=== PATIENT | male | born 1960 | race African-American/Black ===

== ENCOUNTER → 2021-08-28 13:28 | Outpatient (BNVA) | payer OTHER, SELFPAY | PROVIDERS: PCP Nurse Practitioner; Visit Provider Nurse Practitioner Family | DX: N40.1 Benign prostatic hyperplasia with lower urinary tract symptoms (principal); Z12.5 Encounter for screening for malignant neoplasm of prostate | CPT/HCPCS: 81003; G0103 ==

== ENCOUNTER → 2022-04-30 11:07 | Outpatient (BNVA) | payer OTHER, SELFPAY | PROVIDERS: PCP Nurse Practitioner; Visit Provider Nurse Practitioner Family | DX: N40.1 Benign prostatic hyperplasia with lower urinary tract symptoms (principal) | CPT/HCPCS: 51741; 51798; 99213 ==

== ENCOUNTER → 2022-05-05 09:23 | Outpatient (BNVA) | payer OTHER, SELFPAY | PROVIDERS: PCP Nurse Practitioner; Visit Provider Nurse Practitioner Family | DX: N40.1 Benign prostatic hyperplasia with lower urinary tract symptoms (principal) | CPT/HCPCS: 81003 ==

== ENCOUNTER → 2022-05-23 11:10 | Outpatient (BNVA) | payer OTHER, SELFPAY | PROVIDERS: PCP Nurse Practitioner; Visit Provider Urology | DX: N40.1 Benign prostatic hyperplasia with lower urinary tract symptoms (principal) | CPT/HCPCS: 51798; 52000; 81003; 99214 ==

== ENCOUNTER 2022-06-04 09:45 | Observation (INO) | payer OTHER, SELFPAY ==
[2022-06-03 09:49] VITALS: BMI 29.8
--- NOTE | 2022-06-03 10:19 | ANES.PREANE2 ---
Pre-Anesthetic Assessment Height/Weight: Height 1.83 m Weight 99.79 kg Operation Date: 06/04/22 07:00 Proposed Procedures p 48767 Transurethral Rection of Prostate N40.1(Not Applicable) - Rom Cerna MD s Cystoscopy(Not Applicable) - Rom Cerna MD Familial anesthetic complications: none Was Beta Razia taken within 24 hours: N/A Was Clonidine taken within 24 hours: N/A Social No alcohol and No tobacco Exam alert, oriented x 3, clear to auscultation bilaterally and regular rate & rhythm Airway Submandibular: within normal limits Cervical ROM: within normal limits Mallampati: Class II Dentition: full CV/HEM Hypertension Metabolic Hyperlipidemia Anesthetic Plan ASA status: 2 Anesthesia: General Medications/Allergies Home Medications Medication Instructions Recorded Confirmed Last Taken Type atorvastatin 80 mg tablet 80 mg PO DAILY 08/28/21 06/03/22 Unknown History doxepin 50 mg capsule 50 mg PO DAILY 08/28/21 06/03/22 Unknown History finasteride 5 mg tablet 5 mg PO DAILY 08/28/21 06/03/22 Unknown History fluoxetine 20 mg capsule 20 mg PO DAILY 08/28/21 06/03/22 Unknown History losartan 100 mg tablet 100 mg PO DAILY 08/28/21 06/03/22 Unknown History multivitamin 1 tab PO DAILY 08/28/21 06/03/22 Unknown History sildenafil 100 mg tablet 100 mg PO DAILY PRN Erectile 08/28/21 06/03/22 Unknown History Dysfunction tamsulosin 0.4 mg capsule 0.4 mg PO BID #180 caps 08/28/21 06/03/22 Unknown Rx amlodipine 5 mg tablet 5 mg PO DAILY 04/30/22 06/03/22 Unknown History niacin 1,000 mg tablet,extended 1,000 mg PO DAILY 04/30/22 06/03/22 Unknown History release 24 hr Allergies Allergy/AdvReac Type Severity Reaction Status Date / Time Penicillins Allergy Unknown Verified 06/03/22 09:43 [facility] Anesthesia Medical History BPH loc w urin obs/LUTS Surgical History History of cervical spinal surgery History of hernia surgery History of rotator cuff surgery Family History Father , AT AGE 74 Cancer COLON Mother , AT AGE 58 Stroke Social History Smoking and tobacco status: never smoked Alcohol intake: never Marital status: Current occupational status: retired and disabled History of recent travel: No Data Anesthesia Cardiac Studies: No Data to Display
[2022-06-03 11:05] LABS: Anion Gap 12.1 (5-19); Blood Urea Nitrogen 16 mg/dL (8-23); Carbon Dioxide 28 mmol/L (22-29); Chloride 100 mmol/L (98-107); Glomerular Filtration Rate 46.8 mL/min (90-130); Glucose 94 mg/dL (65-115); Osmolality Calculated 283 mOsm/kg (285-295); Potassium 4.1 mmol/L (3.5-5.1); Sodium 136 mmol/L (136-145)
[2022-06-04] VITALS (24 sets, daily range): BP systolic 146–187; BP diastolic 73–111; PULSE 57–93; RESP 16–20; TEMP 35.6–36.6; O2SAT 94–100; BMI 30.7
--- NOTE | 2022-06-04 06:43 | ECG_ITS ---
[facility] Test Date: 2022-06-04 Pat Name: Varun Quinn Department: Room: Gender: Male Building Specialist: : 1960 Requested By: Rom Cerna Order Number: [id number] Ainsley MD: Josue Ramos M.D. Measurements Intervals [place] Rate: 64 P: 51 NV: 158 QRS: -17 QRSD: 88 T: 30 QT: 384 QTc: 399 Interpretive Statements SINUS RHYTHM MINIMAL VOLTAGE CRITERIA FOR LVH, CONSIDER NORMAL VARIANT [MEETS CRITERIA IN ONE OF: R(aVL), S(V1), R(V5), R(V5/V6)+S(V1)] No previous ECG available for comparison Electronically Signed On 06-05-2022 7:12:18 CDT by Josue Ramos M.D. [id number]
[2022-06-04] MEDS: midazolam 1 mg/mL INJ 2 mL 2 MG IVP (06:54)
--- NOTE | 2022-06-04 06:55 | W.PM.OPSUD ---
Surgery/Procedure H&P Update DATE OF PROCEDURE: June 04, 2022 DATE H&P PERFORMED: 05/23/22 H&P UPDATE INFORMATION: I have reviewed H&P completed within last 30 days, I have examined patient prior to procedure, No changes to prior documentation and H&P is in [facility] EMR on date indicated PREOP DIAGNOSIS: Refractory BPH/obstruction PLANNED PROCEDURE: Operation Date: 06/04/22 07:00 Proposed Procedures p [id number] Transurethral Rection of Prostate N40.1(Not Applicable) - Rom Cerna MD s Cystoscopy(Not Applicable) - Rom Cerna MD
[2022-06-04] MEDS: levofloxacin-dextrose 5 % 500 MG/100 ML PREMIX 100 MG IV (08:05)
[2022-06-04 08:06] LABS: Basophils % 0.3 %; Eosinophils % 0.3 %; Hematocrit 41.8 % (42.0-52.0); Hemoglobin 13.4 g/dL (11.7-16.6); Lymphocytes # 2.4 10^3/uL (0.8-4.8); Lymphocytes % 41.1 %; Mean Corpuscular HGB Conc 32.1 g/dL (30.0-36.0); Mean Corpuscular Volume 93.5 fl (80-94); Mean Platelet Volume 9.5 fL (7.4-10.4); Monocytes # 0.5 10^3/uL (0.2-0.9); Neutrophils # 2.84 10^3/uL (1.8-7.7); Nucleated Red Blood Cells % 0 %; Platelet Count 243 10^3/cmm (130-400); Red Blood Count 4.47 10^6/uL (4.1-5.3); Red Cell Distribution Width 11.8 % (12.1-15.1); White Blood Count 5.8 10^3/uL (4.0-10.0)
[2022-06-04] MEDS: lidocaine 2% Urojet 20 mL TOPICAL (08:30)
--- NOTE | 2022-06-04 09:56 | P.OP_ITS ---
Operative Report Date of procedure: June 04, 2022 Pre-op diagnosis: Refractory BPH/obstruction Post-op diagnosis: Refractory BPH/obstruction Procedure done: 1. Cystoscopy, transurethral section/vaporization of prostate Specimens removed/disposition: Prostate chips Pathology: Prostate chips Surgeon: Eryn Estimated blood loss: Less than 25 cc Urine output: Not measured Complications: None Findings: Anesthesia: General Condition: Stable Disposition: PACU Intraoperative findings: * Trilobar enlargement of the prostate with the bulk of the tissue being on the floor and median lobe. * Wide open at the completion of the procedure with meticulous hemostasis * 22 Singaporean three-way Villagran placed with 20 cc in the balloon Brief History: Mr. Quinn is a very pleasant 62-year-old white male with longstanding progressive history of BPH/obstruction with progressive symptoms on medical therapy including FINASTERIDE and maximum dose TAMSULOSIN. He had planned for a TUR many years ago but ultimately decided to postpone and recently based on his progressive symptoms on full therapy elected to proceed. Alternatives chris adame reviewed preoperatively. Procedure: After routine preoperative evaluation examination and obtaining of informed consent he was taken to the operating suite on 06/04/2022 where general anesthesia was administered without difficulty after appropriate timeout was performed, SCDs confirmed to be functioning,Preoperative antibiotics administered, beta-yanet protocol confirmed. Prepped and draped in usual sterile fashion in dorsolithotomy position paying careful attention to avoiding pressure points. 21 Singaporean cystoscope with 30 degree lens was introduced into the urethra meatus and advanced into the bladder without difficulty. Orifices were confirmed to be well away from the bladder neck. The verumontanum was easily identifiable. Most of the tissue appeared to be on the posterior floor but he did have some lateral lobe hypertrophy as well. The urethra was then calibrated with well-lubricated [place] sounds and easily accommodated 32 Singaporean. 2% lidocaine jelly was instilled into the urethra and a well-lubricated 25 Singaporean continuous-flow resectoscope sheath with visual obturator in place was advanced into the bladder without difficulty. The gyrus bipolar system was utilized with the super loop for the resection and the button probe for the vaporization component. Super loop was used initially. Resection was begun circumferentially at the bladder neck paying careful attention to identification of the ureteral orifices and staying well away from them. This was accomplished easily. The floor the prostate was then resected to open up the bladder neck extending the resection out to but not distal to the verumontanum. The left lateral lobe from the bladder neck out to the same distal extent was then resected and then the right lateral lobe in the same longitudinal extent and depth. Button probe was utilized to vaporize the remaining lateral lobe hypertrophy tissue. The super loop was then used again on the floor to harvest the remaining tissue. Hemostasis was meticulous. All chips were evacuated from the bladder and confirmed to be so at the final inspection. The prostatic fossa was wide open. Orifices were not involved in the resection and tissue distal to the verumontanum was undisturbed as well. A 22 Singaporean three-way Villagran catheter with 20 cc placed in the balloon was easily advanced without difficulty. Catheter function was confirmed. Light CBI was initiated. He tolerated procedure well without complications and was awakened in the operating room and returned to the recovery room in stable condition. PLANS: 1. Admit to observation status 2. Anticipate catheter removal and likely discharge
[2022-06-04] MEDS: fentaNYL 50 mcg/mL INJ 2mL IVP (10:10)
[2022-06-04] MEDS: meperidine 50 mg/mL INJ 12.5 MG IVP (10:19)
[2022-06-04] MEDS: HYDROmorphone 1 mg/mL INJ 1 mL 0.5 MG IVP (10:22)
--- NOTE | 2022-06-04 10:45 | SUR.PHASEI ---
1005 SCDs placed on a pump and pump is working
[2022-06-04] MEDS: amlodipine 5 mg Tablet PO ×2 (11:32→13:52)
[2022-06-04] MEDS: finasteride 5 mg Tablet PO (11:33)
[2022-06-04] MEDS: HYDROcodone-acetaminophen 5-325 mg Tablet 1 TAB PO ×2 (11:33→18:35)
[2022-06-04] MEDS: fluoxetine 20 mg Capsule PO (11:33)
[2022-06-04] MEDS: morphine 4 mg/mL SDV 1 mL 2 MG IVP ×4 (12:24→20:38)
[2022-06-04] MEDS: dextrose 5%-ns + KCl 20 20 MEQ/1,000 ML BAG 50 MEQ IV (12:27)
[2022-06-04] MEDS: ondansetron 2 mg/ML SDV 2 mL 4 MG IVP (12:33)
--- NOTE | 2022-06-04 12:38 | PC.NURSE ---
nurse was notified about high BP
[2022-06-04] MEDS: tamsulosin 0.4 mg Capsule PO (17:29)
[2022-06-04] MEDS: docusate sodium 100 mg Capsule PO (17:29)
--- NOTE | 2022-06-04 17:41 | ANE.PACU2 ---
Inpatient post-anesthesia follow up: Airway intact: Yes Vital signs: Temperature 97.7 F Pulse Rate 65 Respiratory Rate 16 Blood Pressure 159/81 Pulse Oximetry 96 Oxygen Delivery Me thod Room Air Oxygen Flow Rate 3 Fraction of Inspir ed Oxygen Hydration adequate: Yes Nausea and vomiting: No Pain level: 3 Mental status: Baseline
[2022-06-05] VITALS (13 sets, daily range): BP systolic 137–162; BP diastolic 77–87; PULSE 63–89; RESP 16–20; TEMP 35.8–36.8; O2SAT 93–96
[2022-06-05] MEDS: morphine 4 mg/mL SDV 1 mL 2 MG IVP ×4 (00:08→16:37)
--- NOTE | 2022-06-05 04:44 | NUR.SHIFT ---
CBI shift report: When coming on to shift the patient's CBI was wide open. Output was a bright red color. This continued for approximately 4 hours. At approximately 2300 the rate was slowed to a fast trickle. Maintained this with light pink to clear output. At this time it is clear and patient denies any discomfort to his bladder and no distention noted and the rate has been decreased to a slow trickle.
[2022-06-05] MEDS: HYDROcodone-acetaminophen 5-325 mg Tablet 1 TAB PO ×3 (05:09→22:33)
[2022-06-05] MEDS: doxepin 50 mg Capsule PO (09:20)
[2022-06-05] MEDS: docusate sodium 100 mg Capsule PO ×2 (09:21→17:35)
[2022-06-05] MEDS: fluoxetine 20 mg Capsule PO (09:21)
[2022-06-05] MEDS: tamsulosin 0.4 mg Capsule PO ×2 (09:21→17:35)
[2022-06-05] MEDS: amlodipine 5 mg Tablet PO (09:21)
[2022-06-05] MEDS: losartan 50 mg Tablet 100 MG PO (09:21)
[2022-06-05] MEDS: atorvastatin 40 mg Tablet 80 MG PO (09:21)
[2022-06-05] MEDS: finasteride 5 mg Tablet PO (09:21)
--- NOTE | 2022-06-05 10:29 | PC.CHAP ---
Pastoral Care Encounter/Spiritual Assessment Type of Contact [] Declined woodworker visit [] Patient/Family/Request visit [] Outpatient visit [] Follow-up visit [] Physician referral [] Code/Alert [x] Routine visit [] Staff referral [] Actively dying [] Patient sleeping [] Family support [] [] Out of room [] Palliative care [] [x] Receiving care in room [] Pre-surgical visit [] Trauma [] Long length of stay [] ICU visit [] Other: Relational/Emotional Strength [x] Patient feels connected with others/family/visitors/staff [] Distress [] Loneliness/isolation [] Abandonment Spirituality of Patient [x] Person of Grace [] Attends Buddhist of their Grace [x] Believes in Prayer [] Reads Bible or Zoroastrian materials [] There are Spiritual issues to be addressed Statistical Programmer Interventions [x] Prayer [x] Active listening [x] Non-anxious presence [x] Spiritual/emotional support [] Crisis/trauma care [x] Spiritual counseling [] Bereavement support [] Provided bereavement packet [] Provided Bible/devotional materials [] Provided toy/stuffed animal, coloring book to patient or family member [] Provided Communion [] Anointing/[place] [] Salvation [x] Completed spiritual assessment [] Other: Impact on Illness or Injury [] Angry [] Fearful [] Anxious [] Often cries [] Exhaustion [] Unable to work [] Unable to attend tenriism [] Unable to walk/stand [] Unable to read [] Unable to drive [] Unable to eat/drink [] Unable to sleep [] Unable to be with family [] Patient intubated [] Other: Summary dealing with prostate clearing up has a good attitude well go home soon +1 Time spent with patient 10 mins
--- NOTE | 2022-06-05 18:30 | P.PN_ITS ---
Subjective Subjective: Postop day #1: TURP Urine remained red when CBI decreased throughout the day. Recommended maintaining hospitalization for CBI throughout the day on 06/05/2020 2 in the evening check showed that it was still being required. Recommend second night in the hospital for observation and chance to wean CBI No other complaints. Medications: Reviewed: Yes Vitals/I&O/Wt Last Vital Signs Temp 97.7 F 06/06/22 07:12 Pulse 69 06/06/22 07:12 Resp 16 06/06/22 07:12 BP 145/82 06/06/22 07:12 Pulse Ox 96 06/06/22 07:12 O2 Del Method 06/06/22 07:12 O2 Flow Rate 3 06/04/22 10:49 06/05/22 06/06/22 06/06/22 22:59 06:59 14:59 Intake Total 2280 / 2880 480 / 3360 Output Total 1200 / 1375 Balance 1080 / 1505 480 / 1985 Weight last 48 hrs Weight 226 lb 14.4 oz Physical Exam Narrative: Alert oriented no acute distress very pleasant cooperative throughout exam unlabored respiration, no wheezing Abdomen soft nontender Villagran catheter functioning. CBI running at low rate with urine pink Good range of motion of extremities. No neurologic signs. Urinary Catheter Management: 3-way Urethral CBI Latex: Cath Placed During This Visit: yes Reason for Continuing Indwelling Catheter: Required Immobilization for Trauma or Surgery or Anesthesia Urinary Catheter Date of Insertion: 06/04/22 Urinary Catheter Time of Insertion: 09:50 Data : 06/04/22 Unknown 06/03/22 10:20 A&P Assessment and plan (1) BPH loc w urin obs/LUTS: Status post TURP with not enough clearing of his urine yet to be able to completely stop the CBI although the flow rate has been low. See HPI Attestations Medical Necessity Statement*: Maintain hospitalization for continued CBI. Anticipate being able to remove the catheter on postop day #2. Coding Level of Care Code Acute Senior Hris Analyst for Kamar Fwashleigh Diagnoses BPH loc w urin obs/LUTS N40.1
[2022-06-06 04:49] VITALS: BP 150/85; PULSE 79; RESP 20; TEMP 36.6; O2SAT 95
[2022-06-06 07:12] VITALS: BP 145/82; PULSE 69; RESP 16; TEMP 36.5; O2SAT 96
[2022-06-06] MEDS: HYDROcodone-acetaminophen 5-325 mg Tablet 1 TAB PO (07:18)
[2022-06-06] MEDS: fluoxetine 20 mg Capsule PO (08:23)
[2022-06-06] MEDS: atorvastatin 40 mg Tablet 80 MG PO (08:23)
[2022-06-06] MEDS: finasteride 5 mg Tablet PO (08:23)
[2022-06-06] MEDS: doxepin 50 mg Capsule PO (08:23)
[2022-06-06] MEDS: docusate sodium 100 mg Capsule PO (08:23)
[2022-06-06] MEDS: amlodipine 5 mg Tablet PO (08:24)
[2022-06-06] MEDS: tamsulosin 0.4 mg Capsule PO (08:24)
[2022-06-06] MEDS: losartan 50 mg Tablet 100 MG PO (08:24)
[2022-06-06 11:51] VITALS: BP 126/73; PULSE 66; RESP 18; TEMP 36.4; O2SAT 96
--- NOTE | 2022-06-06 13:38 | PM.DCS ---
Discharge Providers Date of Admission: 06/04/22 09:45 Date of Discharge: June 06, 2022 Attending Provider at Admission: Rom Cerna MD Attending Provider at Discharge: Rom Cerna MD Consults: None Primary Care Provider: SHERON MARINO Diagnoses at Discharge Discharge Diagnosis (1) BPH loc w urin obs/LUTS: Status: Acute Reason for Visit Reason for Visit: BPH/Obstruction Brief History: Longstanding progressive bladder outlet obstructive symptoms secondary to BPH/obstruction. Had been on maximal medical therapy for quite some period of time with improvement but over time symptoms progressed. Ultimately elected to proceed with intervention. All options were thoroughly reviewed including minimally invasive versus TUR. After careful review of options he elected to proceed with TURP. Hospital Course Hospital Course He was admitted on the day of the procedure which went well. He was wide open at the completion of the procedure and hemostatic in the operating room. Postoperatively he did well. He did require CBI for an extra 24 hours but ultimately was weaned off and his catheter was removed on postop day #2. He voided spontaneously with clearing urine. Still had some pink-tinged urine but it was not significant and there were no significant clots. He was deemed to be a good candidate for further convalescence at home and was discharged on postop day #2 in stable condition. Physical Exam Narrative: Alert oriented no acute distress Pleasant cooperative throughout exam No labored respiration. Abdomen soft. Urine is pink with no clots. Urinary Catheter Management: 3-way Urethral CBI Latex: Cath Placed During This Visit: yes, but has since been removed by the nurse Reason for Continuing Indwelling Catheter: Decision to DC Catheter Urinary Catheter Date of Insertion: 06/04/22 Urinary Catheter Time of Insertion: 09:50 Date Urinary Catheter Removed: 06/06/22 Time Urinary Catheter Discontinued: 07:45 Discharge Data Studies Completed and Pending Completed Studies During Hospitalization Category Date Time Status Pathology: Surgical [PTH] Routine Pth 06/04/22 08:40 Completed Laboratory Results WBC 5.8 10^3/uL (4.0-10.0) 06/04/22 Unknown RBC 4.47 10^6/uL (4.1-5.3) 06/04/22 Unknown Hgb 13.4 g/dL (11.7-16.6) 06/04/22 Unknown Hct 41.8 % (42.0-52.0) L 10/26/22 Unknown MCV 93.5 fl (80-94) 06/04/22 Unknown MCH 30.0 pg (28.0-34.0) 06/04/22 Unknown MCHC 32.1 g/dL (30.0-36.0) 06/04/22 Unknown RDW 11.8 % (12.1-15.1) L 06/04/22 Unknown Plt Count 243 10^3/cmm (130-400) 06/04/22 Unknown MPV 9.5 fL (7.4-10.4) 06/04/22 Unknown Neut % (Auto) 49.0 % 06/04/22 Unknown Lymph % (Auto) 41.1 % 06/04/22 Unknown [place] % (Auto) 9.0 % 06/04/22 Unknown Eos % (Auto) 0.3 % 06/04/22 Unknown Baso % (Auto) 0.3 % 06/04/22 Unknown Neut # (Auto) 2.84 10^3/uL (1.8-7.7) 06/04/22 Unknown Lymph # (Auto) 2.4 10^3/uL (0.8-4.8) 06/04/22 Unknown [place] # (Auto) 0.5 10^3/uL (0.2-0.9) 06/04/22 Unknown Eos # (Auto) 0.0 10^3/uL (0.0-0.8) 06/04/22 Unknown Baso # (Auto) 0.0 10^3/uL (0.0-0.1) 06/04/22 Unknown Nucleated RBC % (auto) 0 % 06/04/22 Unknown Nucleated RBCs # 0.0 /100WBC 06/04/22 Unknown Sodium 136 mmol/L (136-145) 06/03/22 10:20 Potassium 4.1 mmol/L (3.5-5.1) 06/03/22 10:20 Chloride 100 mmol/L (98-107) 06/03/22 10:20 Carbon Dioxide 28 mmol/L (22-29) 06/03/22 10:20 Anion Gap 12.1 (5-19) 06/03/22 10:20 BUN 16 mg/dL (8-23) 06/03/22 10:20 Creatinine 1.8 mg/dL (0.7-1.2) H 06/03/22 10:20 GFR Calculation 46.8 mL/min (90-130) L 06/03/22 10:20 Glucose 94 mg/dL (65-115) 06/03/22 10:20 Calculated Osmolality 283 mOsm/kg (285-295) L 06/03/22 10:20 Calcium 9.0 mg/dL (8.5-10.5) 06/03/22 10:20 Vitals Last Vital Signs Temp 97.6 F 06/06/22 11:51 Pulse 66 06/06/22 11:51 Resp 18 06/06/22 11:51 BP 126/73 06/06/22 11:51 Pulse Ox 96 06/06/22 11:51 O2 Del Method 06/06/22 11:51 O2 Flow Rate 3 06/04/22 10:49 Discharge Plan Discharge Patient Disposition: Home Condition: Stable Prescriptions: Continued finasteride 5 mg tablet 5 mg PO DAILY multivitamin Tablet 1 tab PO DAILY atorvastatin 80 mg tablet 80 mg PO DAILY doxepin 50 mg capsule 50 mg PO DAILY fluoxetine 20 mg capsule 20 mg PO DAILY losartan 100 mg tablet 100 mg PO DAILY sildenafil 100 mg tablet 100 mg PO DAILY PRN (Reason: Erectile Dysfunction) Rx Instructions: administer 30 minutes to 4 hours before activity tamsulosin 0.4 mg capsule 0.4 mg PO BID Qty: 180 3RF niacin 1,000 mg tablet extended release 24 hr 1,000 mg PO DAILY amlodipine 5 mg tablet 5 mg PO DAILY Discharge Orders: Discharge Order (Routine); Ordered 06/06/22 Ordered By: Rom Cerna Referrals: Rom Cerna MD [Physician] - 1 month (Pvr) Discharge Diet: Usual diet Discharge Activity: Limit activity as instructed Patient Instructions: Opioid Safety Activity Restrictions/Additional Instructions: 1. It will be important to avoid heavy lifting or straining for the first few weeks. 2. You can expect to see some blood in your urine off and on and even some small clots and this is normal. 3. As long as your urine does look red it is worth drinking a lot more fluid than normal just to keep your urine output up. 4. Please call if you have any concerns or questions. The hospital thermit welding machine operator can reach me anytime. My 5. We will see back in about a month for routine postoperative check and pathology review. Discharge Attestations Time Spent in Discharge Care*: less than 30 min Quality Metrics Clinical Quality Measures [ No reported AMI, CVA or VTE this stay] Coding Level of Care Code Acute Chg DC note Diagnoses BPH loc w urin obs/LUTS N40.1
[2022-06-06 15:44] VITALS: BP 126/73; PULSE 66; RESP 18; TEMP 36.4; O2SAT 96
== END 2022-06-06 15:45 | disposition home or self-care (01) ==
LOC: MEDSURG 09:46
PROVIDERS: Admitting Provider Urology; PCP Nurse Practitioner; Visit Provider Urology
PROC: 0VT08ZZ Resection of Prostate, Via Natural or Artificial Opening Endoscopic (ICD-10-PCS; CPT 52601; principal; 2022-06-04 07:00)
PROC: 0TJB8ZZ Inspection of Bladder, Via Natural or Artificial Opening Endoscopic (ICD-10-PCS; CPT 52000; 2022-06-04 07:00)
DX: N40.1 Benign prostatic hyperplasia with lower urinary tract symptoms (principal); N13.8 Other obstructive and reflux uropathy; I10 Essential (primary) hypertension; E78.5 Hyperlipidemia, unspecified
CPT/HCPCS: 52601; 36415; 51798; 80048; 85025; 88305; 93005; G0378; J1100; J1170; J1956; J2175; J2250; J2270; J2405; J2704; J2710; J3010; J3490

== ENCOUNTER → 2022-07-22 07:27 | Outpatient (BNVA) | payer OTHER, SELFPAY | PROVIDERS: PCP Nurse Practitioner; Visit Provider Urology | DX: N40.1 Benign prostatic hyperplasia with lower urinary tract symptoms (principal); Z98.890 Other specified postprocedural states | CPT/HCPCS: 51798; 81003; 99024 ==

== ENCOUNTER → 2022-10-23 09:23 | Outpatient (BNVA) | payer OTHER, SELFPAY | PROVIDERS: PCP Nurse Practitioner; Visit Provider Urology | DX: N40.1 Benign prostatic hyperplasia with lower urinary tract symptoms (principal) | CPT/HCPCS: 51798; 99212 ==

== ENCOUNTER 2022-12-24 09:37 | Outpatient (RCR) | payer OTHER, SELFPAY | END 2023-01-07 23:59 | disposition home or self-care (01) | LOC: SPT 09:37 | PROVIDERS: PCP Family Medicine; Visit Provider Family Medicine | DX: M25.562 Pain in left knee (principal) | CPT/HCPCS: 97110; 97162 ==

== ENCOUNTER → 2023-04-21 07:08 | Outpatient (BNVA) | payer OTHER, SELFPAY | PROVIDERS: PCP Family Medicine; Visit Provider Student in an Organized Health Care Education/Training Program | DX: M25.562 Pain in left knee; M17.12 Unilateral primary osteoarthritis, left knee | CPT/HCPCS: 73560; 73565; 99204; J3301 ==

== ENCOUNTER 2023-05-21 13:31 | Outpatient (CLI) | payer OTHER, SELFPAY ==
--- NOTE | 2023-05-21 13:35 | MR_ITS ---
WS: [id number] MRI RIGHT KNEE NONCONTRAST TECHNIQUE: Axial PD, coronal PD fat sat, coronal PD, sagittal PD, and sagittal PD fat-sat images obta ined. CLINICAL INFORMATION: R KNEE PAIN COMPARISON: None. FINDINGS: Distal quadriceps and patella tendons are intact. Hypertrophic patella. Advanced tricompartmental deg enerative arthritis. Chronic appearing split tear involving the proximal ACL. Distal ACL fibers appea r intact. PCL appears intact. Chronic thinning of the medial and lateral meniscus. Peripheral extrusi on of the medial meniscus with chronic appearing tear involving the meniscal root with joint space na rrowing. Horizontal tear posterior horn medial meniscus extending to the articular surface. Advanced chondromalacia involving the medial and lateral joint compartments with full-thickness carti michelle defects. Minimal subchondral edema. Medial and lateral collateral ligaments appear intact. Talia l popliteal fossa. Moderate chondromalacia patella. Medial and lateral patellar retinaculum appear in tact. Tiny suprapatellar effusion. IMPRESSION: 1. Advanced tricompartmental arthritis. 2. 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 3. Chronic appearing tear involving the root of the medial meniscus with peripheral extrusion. Addit ional horizontal tear posterior horn medial meniscus extending to the articular surface. 4. Chronic appearing split tear involving the proximal ACL. Distal ACL fibers appear intact. Normal PCL. 5. Moderate chondromalacia patella. Outbridge grading: grade IV: full-thickness cartilage loss with underlying bone reactive changes
== END 2023-05-21 13:32 | disposition home or self-care (01) ==
LOC: RAD 13:31
PROVIDERS: PCP Family Medicine; Visit Provider Family Medicine
DX: M17.11 Unilateral primary osteoarthritis, right knee (principal); M22.41 Chondromalacia patellae, right knee; S83.221A Peripheral tear of medial meniscus, current injury, right knee, initial encounter; S83.241A Other tear of medial meniscus, current injury, right knee, initial encounter; X58.XXXA Exposure to other specified factors, initial encounter
CPT/HCPCS: 73721

== ENCOUNTER 2023-06-04 16:34 | Outpatient (CLI) | payer OTHER, SELFPAY ==
--- NOTE | 2023-06-04 | CT_ITS ---
WS: [id number] CT ABDOMEN AND PELVIS NONCONTRAST HISTORY: HYPERHIDROSIS TECHNIQUE: Imaging performed through the abdomen and pelvis. Coronal and sagittal reformats are submi tted. All CT scans at [facility] use at least one of these dose optimization techniques: auto mated exposure control; mA and/or kV adjustment per patient size (includes targeted exams where dose is matched to clinical indication); or iterative reconstruction. DLP: 544.82 mGy.cm COMPARISON: None available. Lower thorax: Lung bases are clear. Visualized heart is normal. No hiatal hernia. Liver: Liver is normal size. There are several low-attenuation masses throughout the liver. The most concerning masses in the lateral RIGHT lobe of the liver measuring 4.9 x 3.0 cm borders are slightly irregular and Hounsfield units are elevated. There are additional scattered masses throughout the jase er in both the RIGHT and LEFT lobes which are probably cysts. No bile duct dilatation. Gallbladder: Normal gallbladder. No pericholecystic fluid or cholelithiasis. No gallbladder wall thic kening. Pancreas: Normal size and attenuation. Normal pancreatic duct. No pancreatitis or mass. Spleen: Normal. Adrenal glands: Normal. No mass. Right kidney: Normal size kidney with no mass or hydronephrosis. Left kidney: Nonobstructing 4 mm calcification mid kidney. Aorta: Mild atherosclerosis abdominal aorta with no aneurysm. No free fluid, intraperitoneal air or significant lymphadenopathy. GI tract: Normal noncontrast imaging of the stomach, small bowel and colon. No obstruction or wall th ickening. Normal appendix. Abdominal wall: Negative. No hernia. Pelvis: Well-distended urinary bladder. No free fluid or adenopathy. Osseous structures: Unremarkable. IMPRESSION: 1. Multiple low-attenuation masses within the liver. Most concerning mass in the RIGHT lobe measures 4.9 x 3.0 cm. Differential includes simple cysts with complex cyst, hemangiomas or neoplasm. Recomme nd hepatic mass CT protocol with and without IV contrast. Ultrasound may also provide additional info rmation but would probably not identified all of these masses adequately. 2. No ascites or adenopathy.
== END 2023-06-04 16:35 | disposition home or self-care (01) ==
PROVIDERS: PCP Family Medicine; Visit Provider Family Medicine
DX: R61 Generalized hyperhidrosis (principal); R16.0 Hepatomegaly, not elsewhere classified
CPT/HCPCS: 74176

== ENCOUNTER 2023-06-22 12:04 | Outpatient (CLI) | payer OTHER, SELFPAY ==
--- NOTE | 2023-06-22 12:08 | US_ITS ---
WS: [id number] RENAL ULTRASOUND HISTORY: STAGE 3B CHRONIC KIDNEY DZ COMPARISON: None available. TECHNIQUE: 2-D and color Doppler imaging of the kidney submitted. Right kidney: 9.2 cm x 5.0 cm x 4.6 cm. Cortex: 0.9 cm Low normal size kidney with mild cortical thinning. No obstruction or mass. Left kidney: 10.4 cm x 5.2 cm x 5.7 cm. Cortex: 1.2 cm Normal echogenicity with no hydronephrosis or mass. Aorta: Normal. Urinary Bladder: Normal distention. IMPRESSION: 1. RIGHT kidney measures low normal size with mild cortical thinning. No obstruction. 2. Negative LEFT kidney.
== END 2023-06-22 12:05 | disposition home or self-care (01) ==
LOC: RAD 12:04
PROVIDERS: PCP Family Medicine; Visit Provider Internal Medicine Nephrology
DX: N18.32 Chronic kidney disease, stage 3b (principal)
CPT/HCPCS: 76770

== ENCOUNTER 2023-06-25 10:06 | Outpatient (CLI) | payer OTHER, SELFPAY ==
--- NOTE | 2023-06-25 10:13 | MR_ITS ---
WS: [id number] MRI LEFT KNEE HISTORY: L KNEE PAIN COMPARISON: Radiograph 04/21/2023 Anterior cruciate ligament: Mild increased T2 signal throughout the ACL. Majority of the ACL fibers a re intact. No full-thickness or high-grade tear. Posterior cruciate ligament: Intact. Medial collateral ligament: No MCL tear. There is an elongated fluid collection between the MCL and t he tibial plateau. Fluid collection extends inferiorly along the tibial metaphysis. Posterior lateral corner structures: Intact. Medial menisci: Mild fraying along the surfaces of the meniscus. Seen only on one image in the sagitt al plane is an area of increased T2 signal in the meniscal body. Suspicious for radial tear. Cannot c onfirm as it is not seen on contiguous slices. Lateral meniscus: Intact. Normal signal, size and shape. Extensor mechanism: Distal quadriceps tendon and patellar tendons are intact. Fluid and soft tissue: Small suprapatellar joint effusion. There is a small amount of fluid surroundi ng the knee. No Ruano's cyst. Fluid collection along the medial knee extends from the meniscus inferi kelly by 30 mm. Osseous and articular structures: Patellofemoral compartment: Mild joint space narrowing and fissuring of the cartilage. Medial compartment: Moderate joint space narrowing with moderate chondromalacia. Small marginal osteo phytes. Marrow edema along the medial tibial plateau Lateral compartment: Very mild narrowing. IMPRESSION: 1. Elongated fluid collection along the medial tibia deep to the MCL. There is a small tract extendin g to the posterior horn of the medial meniscus. Differential includes MCL bursitis or a meniscal cyst associated with an occult meniscal tear. 2. Indeterminate radial tear body medial meniscus. 3. Moderate joint space narrowing in the medial compartment. Mild joint space narrowing patellofemora l and lateral compartments. Moderate chondromalacia medial compartment. 4. Marrow edema involving the medial tibial plateau.
== END 2023-06-25 10:07 | disposition home or self-care (01) ==
LOC: RAD 10:06
PROVIDERS: PCP Family Medicine; Visit Provider Family Medicine
DX: S83.242A Other tear of medial meniscus, current injury, left knee, initial encounter (principal); M94.262 Chondromalacia, left knee
CPT/HCPCS: 73721

== ENCOUNTER 2023-07-23 08:12 | Outpatient (CLI) | payer OTHER, SELFPAY ==
--- NOTE | 2023-07-23 08:22 | CTR_ITS ---
PROCEDURE INFORMATION: Exam: CT Abdomen And Pelvis Without And With Contrast Exam date and time: 07/23/2023 10:27 AM Age: 63 years old Clinical indication: Abnormal findings; Abnormal radiologic finding of the abdomen; Radiologic exam and body structure: Hepatic mass found on CT scan; Prior surgery; Surgery date: 6+ months; Surgery type: Hernia TECHNIQUE: Imaging protocol: Computed tomography of the abdomen and pelvis without and with contrast. Radiation optimization: All CT scans at this facility use at least one of these dose optimization techniques: automated exposure control; mA and/or kV adjustment per patient size (includes targeted exams where dose is matched to clinical indication); or iterative reconstruction. Contrast material: OMNI 350; Contrast volume: 95 ml; Contrast route: INTRAVENOUS (IV); REPORTING DATA: Count of CT and Cardiac NM exams in prior 12 months: This patient has received [address] and 0 known cardiac nuclear medicine studies in the 12 months prior to the current study. COMPARISON: CT abdomen pelvis wo con [id number] 06/04/2023 4:49 PM RADIATION DOSE METRICS: Total DLP (mGy-cm): 1513.87 FINDINGS: Liver: Most of the previously reported hepatic masses are simple cysts. The largest area of abnormality in the lateral right hepatic lobe enhances in a somewhat centripetal fashion and is likely a hemangioma. It measures approximately 5.8 cm in maximum dimension. It does not become isodense on delayed images. MRI recommended for confirmation. Gallbladder and bile ducts: Normal. No calcified stones. No ductal dilation. Pancreas: Normal. No ductal dilation. Spleen: Normal. No splenomegaly. Adrenal glands: Normal. No mass. Kidneys and ureters: Nonobstructing left renal calculi. Stomach and bowel: Unremarkable. No obstruction. No mucosal thickening. Appendix: No evidence of appendicitis. Intraperitoneal space: Unremarkable. No free air. No significant fluid collection. Vasculature: Unremarkable. No abdominal aortic aneurysm. Lymph nodes: Unremarkable. No enlarged lymph nodes. Urinary bladder: Unremarkable as visualized. Reproductive: Unremarkable as visualized. Bones/joints: Unremarkable. No acute fracture. Soft tissues: Unremarkable. CT/CT abdomen wo/w con [id number] IMPRESSION: The largest hepatic lesion is likely a hemangioma. MR confirmation recommended.
[2023-07-23 09:21] LABS: Blood Urea Nitrogen 13 mg/dL (8-23); Glomerular Filtration Rate 49.8 mL/min (90-130)
[2023-07-23] MEDS: iohexol 350 mg/mL 500 mL Btl (per mL) IV (10:31)
== END 2023-07-23 08:13 | disposition home or self-care (01) ==
LOC: RAD 08:13
PROVIDERS: PCP Family Medicine; Visit Provider Family Medicine
DX: M94.262 Chondromalacia, left knee (principal); M17.12 Unilateral primary osteoarthritis, left knee
CPT/HCPCS: 20610; 74170; 82565; 84520; 99213; J3301; Q9967

== ENCOUNTER → 2024-03-15 08:25 | Outpatient (BNVA) | payer OTHER, SELFPAY | PROVIDERS: PCP Family Medicine; Referring Provider Family Medicine; Visit Provider Internal Medicine | DX: R79.89 Other specified abnormal findings of blood chemistry (principal); L74.519 Primary focal hyperhidrosis, unspecified; N40.1 Benign prostatic hyperplasia with lower urinary tract symptoms; Z79.890 Hormone replacement therapy | CPT/HCPCS: 99204 ==

== ENCOUNTER 2024-03-16 09:46 | Outpatient (CLI) | payer OTHER, SELFPAY ==
[2024-03-16 10:23] LABS: Basophils % 0.4 %; Eosinophils # 0.1 10^3/uL (0.0-0.8); Eosinophils % 1.2 %; Hematocrit 42.7 % (37-53); Lymphocytes # 1.8 10^3/uL (0.8-4.8); Lymphocytes % 36.7 %; Mean Corpuscular HGB Conc 32.1 g/dL (30-55); Mean Corpuscular Hemoglobin 29.7 pg (27-33); Mean Corpuscular Volume 92.4 fl (82-101); Mean Platelet Volume 8.8 fL (7.4-10.4); Monocytes # 0.5 10^3/uL (0.2-0.9); Neutrophils # 2.51 10^3/uL (1.8-7.7); Neutrophils % 51.5 %; Nucleated Red Blood Cells % 0 %; Platelet Count 244 10^3/cmm (157-399); Red Blood Count 4.62 10^6/uL (3.85-5.65); Red Cell Distribution Width 11.8 % (12.1-15.1); White Blood Count 4.88 10^3/uL (3.29-11.43)
[2024-03-16 10:52] LABS: Alanine Aminotransferase 20 U/L (0-41); Albumin Level 3.7 g/dL (3.5-5.2); Alkaline Phosphatase 75 U/L (40-130); Anion Gap 12.3 (5-19); Aspartate Amino Transferase 19 U/L (0-40); Blood Urea Nitrogen 17 mg/dL (8-23); Calcium 8.7 mg/dL (8.5-10.5); Carbon Dioxide 27 mmol/L (22-29); Chloride 109 mmol/L (98-107); Chol HDL Ratio 2.64 mg/dL (1.0-5.00); Cholesterol 193 mg/dL (0-200); Globulin 2.8 g/dL (1.3-4.6); Glomerular Filtration Rate 49.7 mL/min (90-130); Glucose 93 mg/dL (65-115); HDL Cholesterol 73 mg/dL (60-100); LDL Cholesterol Calculated 109 mg/dL (50-129); LDL HDL Ratio 1.49 RATIO (0.00-3.22); Osmolality Calculated 299 mOsm/kg (285-295); Potassium 4.3 mmol/L (3.5-5.1); Prostate Specific Antigen Scr 1.21 ng/mL (0-4); Sodium 144 mmol/L (136-145); Testosterone Total 844.9 ng/dL (193-740); Total Bilirubin 0.6 mg/dL (0.15-1.2); Total Protein 6.5 g/dL (6.6-8.7); Triglycerides 54 mg/dL (0-150)
== END 2024-03-16 09:47 | disposition home or self-care (01) ==
LOC: LAB 09:46
PROVIDERS: PCP Family Medicine; Visit Provider Internal Medicine
DX: R79.89 Other specified abnormal findings of blood chemistry (principal)
CPT/HCPCS: 36415; 80053; 80061; 84403; 85025; G0103

== ENCOUNTER 2024-03-24 10:53 | Outpatient (CLI) | payer OTHER, SELFPAY ==
[2024-03-24 13:02] LABS: Testosterone Total 264.5 ng/dL (193-740)
== END 2024-03-24 10:54 | disposition home or self-care (01) ==
LOC: LAB 10:55
PROVIDERS: PCP Family Medicine; Visit Provider Internal Medicine
DX: M25.562 Pain in left knee; M25.561 Pain in right knee; M17.12 Unilateral primary osteoarthritis, left knee; R79.89 Other specified abnormal findings of blood chemistry
CPT/HCPCS: 20610; 36415; 73560; 73565; 80053; 80061; 84403; 85025; 99213; G0103; J3301

== ENCOUNTER 2024-05-19 11:04 | Outpatient (CLI) | payer OTHER, SELFPAY ==
[2024-05-19 12:20] LABS: Testosterone Total 171.8 ng/dL (193-740)
== END 2024-05-19 11:05 | disposition home or self-care (01) ==
LOC: LAB 11:05
PROVIDERS: PCP Family Medicine; Visit Provider Internal Medicine
DX: R79.89 Other specified abnormal findings of blood chemistry (principal)
CPT/HCPCS: 36415; 84403

== ENCOUNTER → 2024-05-20 09:00 | Outpatient (BNVA) | payer OTHER, SELFPAY | PROVIDERS: PCP Family Medicine; Visit Provider Internal Medicine | DX: R79.89 Other specified abnormal findings of blood chemistry (principal); L74.519 Primary focal hyperhidrosis, unspecified; N40.1 Benign prostatic hyperplasia with lower urinary tract symptoms; B35.3 Tinea pedis; Z79.890 Hormone replacement therapy | CPT/HCPCS: 99214 ==

== ENCOUNTER → 2024-06-28 08:48 | Outpatient (BNVA) | payer OTHER, SELFPAY | PROVIDERS: PCP Family Medicine; Visit Provider Student in an Organized Health Care Education/Training Program | DX: M17.12 Unilateral primary osteoarthritis, left knee (principal) | CPT/HCPCS: 99213 ==

== ENCOUNTER → 2024-08-18 08:33 | Outpatient (BNVA) | payer OTHER, SELFPAY | PROVIDERS: PCP Family Medicine; Visit Provider Physician Assistant | DX: Z01.818 Encounter for other preprocedural examination (principal); M17.12 Unilateral primary osteoarthritis, left knee | CPT/HCPCS: 20610; 99214; J3301 ==

== ENCOUNTER → 2025-01-24 10:22 | Outpatient (BNVA) | payer OTHER, SELFPAY | PROVIDERS: PCP Family Medicine; Visit Provider Physician Assistant | DX: M17.12 Unilateral primary osteoarthritis, left knee (principal); Z01.818 Encounter for other preprocedural examination | CPT/HCPCS: 36415; 80053; 81001; 85025; 99213 ==

== ENCOUNTER 2025-01-31 15:24 | Outpatient (CLI) | payer OTHER, SELFPAY ==
--- NOTE | 2025-01-31 16:30 | CT_ITS ---
WS: [id number] CT LEFT KNEE, NONCONTRAST [facility] TECHNIQUE: Noncontrast CT of the LEFT knee to include the LEFT hip and ankle. CLINICAL INFORMATION: M17.12 - Unilateral primary osteoarthritis, left knee DLP: 966.[address] scans at [facility] use at least one of these dose optimization techniques: automated exposure control; mA and/or kV adjustment per patient size (includes targeted exams where dose is matched to clinical indication); or iterative reconstruction. FINDINGS: Advanced tricompartmental arthritis LEFT knee. Hypertrophic patella. Small suprapatellar effusion. Vascular calcification. Sigmoid diverticulosis. Prostate calcification with mild prostate enlargement measuring 3.[address]/CT knee LT [facility] [id number] IMPRESSION: Images obtained for preoperative purposes.
== END 2025-01-31 15:25 | disposition home or self-care (01) ==
PROVIDERS: PCP Family Medicine; Visit Provider Student in an Organized Health Care Education/Training Program
DX: M17.12 Unilateral primary osteoarthritis, left knee (principal)
CPT/HCPCS: 73700

== ENCOUNTER 2025-02-13 12:41 | Observation (INO) | payer OTHER, SELFPAY ==
[2025-02-13] VITALS (25 sets, daily range): BP systolic 110–195; BP diastolic 54–100; PULSE 58–94; RESP 16–18; TEMP 36.1–36.8; O2SAT 92–100; BMI 29.2
--- NOTE | 2025-02-13 07:17 | W.PM.OPSUD ---
Surgery/Procedure H&P Update DATE OF PROCEDURE: February 13, 2025 DATE H&P PERFORMED: 01/24/25 H&P UPDATE INFORMATION: I have reviewed H&P completed within last 30 days, I have examined patient prior to procedure and No changes to prior documentation PREOP DIAGNOSIS: Left knee DJD PRIMARY INDICATION FOR PROCEDURE: Left knee DJD PLANNED PROCEDURE: Operation Date: 02/13/25 10:00 Proposed Procedures p Valentin Robot Total Knee Arthroplasty(Left) - Gorge Rowell DO
[2025-02-13] MEDS: acetaminophen 1,000 MG/100 ML PIGGYBACK 400 MG IV ×3 (07:31→21:06)
--- NOTE | 2025-02-13 07:36 | XRR_ITS ---
PROCEDURE INFORMATION: Exam: XR Left Knee Exam date and time: 02/13/2025 12:48 PM Age: 65 years old Clinical indication: Device placement; Joint replacement hardware; Prior surgery; Surgery date: Post-operative (0-2 days); Surgery type: Post L tka; Additional info: Post L tka, do in pacu TECHNIQUE: Imaging protocol: Radiologic exam of the left knee. Views: 1 or 2 views. COMPARISON: CT knee LT [facility] [id number] 01/31/2025 3:37 PM FINDINGS: Bones/joints: Postoperative radiographs status post total left knee arthroplasty with components in expected position. Soft tissues: Postoperative soft tissues/intra-articular air and edema. Skin mallory noted. XR/XR knee LT 1-2V [id number] IMPRESSION: 1. Postoperative radiographs status post total left knee arthroplasty with components in expected position.
[2025-02-13 07:37] LABS: Hematocrit 47.1 % (37-53); Hemoglobin 14.90 g/dL (11.27-16.99); Mean Corpuscular HGB Conc 31.6 g/dL (30-55); Mean Corpuscular Hemoglobin 28.7 pg (27-33); Mean Corpuscular Volume 90.8 fl (82-101); Nucleated Red Blood Cells % 0 %; Platelet Count 280 10^3/cmm (157-399); Red Blood Count 5.19 10^6/uL (3.85-5.65); White Blood Count 7.16 10^3/uL (3.29-11.43)
[2025-02-13 07:53] LABS: Blood Urea Nitrogen 15 mg/dL (8-23); Calcium 9.2 mg/dL (8.5-10.5); Carbon Dioxide 25 mmol/L (22-29); Chloride 104 mmol/L (98-107); Creatinine Clr Calc Pharmacy 53.9443; Glucose 84 mg/dL (65-115); Osmolality Calculated 288 mOsm/kg (285-295); Sodium 139 mmol/L (136-145)
[2025-02-13 07:54] LABS: Anion Gap 13.9 (5-19); Potassium 3.9 mmol/L (3.5-5.1)
[2025-02-13] MEDS: midazolam 1 mg/mL INJ 2 mL 2 MG IVP (08:55)
--- NOTE | 2025-02-13 09:03 | ANES.PREANE2 ---
Pre-Anesthetic Assessment Height/Weight: Height 1.83 m Weight 97.976 kg Temp Pulse Resp BP Pulse Ox O2 Del Method 97.5 F L 75 18 159/100 98 Room Air 02/13/25 07:18 02/13/25 07:18 02/13/25 07:18 02/13/25 07:18 02/13/25 07:18 02/13/25 07:18 Preop Diagnosis: Left knee DJD Operation Date: 02/13/25 10:00 Proposed Procedures p Valentin Robot Total Knee Arthroplasty(Left) - Gorge Rowell DO Familial anesthetic complications: None Was Beta Razia taken within 24 hours: N/A Was Clonidine taken within 24 hours: N/A Last intake: Intake Last Liquid Date 02/12/25 Last Liquid Time 21:00 Last Solid Date 02/12/25 Last Solid Time 19:30 Social No alcohol and No tobacco Exam alert, oriented x 3, clear to auscultation bilaterally and regular rate & rhythm Airway Mallampati: Class II Dentition: full Pulmonary Sleep Apnea CV/HEM Hypertension Anesthetic Plan ASA status: 3 Anesthesia: Regional (specify below) Other: Spinal + Adductor BLock Risk of > 500 ml blood loss (7ml/kg in children): Yes, adequate IV access and fluids planned Medications/Allergies Home Medications ?Medication ?Instructions ?Recorded ?Confirmed ?Last Taken ?Type atorvastatin 80 mg tablet 80 mg PO DAILY 08/28/21 02/09/25 02/12/25 History fluoxetine 20 mg capsule 20 mg PO DAILY 08/28/21 02/09/25 02/12/25 History multivitamin 1 tab PO DAILY 08/28/21 02/09/25 06/04/22 History sildenafil 100 mg tablet 100 mg PO DAILY PRN Erectile 08/28/21 02/09/25 1 Day Ago History Dysfunction ~02/08/25 amlodipine 5 mg tablet 5 mg PO DAILY 04/30/22 02/09/25 02/12/25 History niacin 1,000 mg tablet,extended 1,000 mg PO DAILY 04/30/22 02/09/25 02/12/25 History release 24 hr testosterone 3 pump topical DAILY 3 months #150 05/31/24 02/09/25 Unknown Rx grams Allergies Allergy/AdvReac Type Severity Reaction Status Date / Time Penicillins Allergy ADR-Seizure Verified 02/13/25 07:03 [facility] Anesthesia Medical History BPH loc w urin obs/LUTS Surgical History Status post transurethral resection of prostate History of rotator cuff surgery History of hernia surgery History of cervical spinal surgery Family History Father , AT AGE 74 Cancer COLON Mother , AT AGE 58 Stroke Social History Smoking and tobacco/nicotine status: never used tobacco/nicotine Alcohol intake: never Substance/Drug Use: never Marital status: Current occupational status: retired and disabled Data Anesthesia 02/13/25 07:25 02/13/25 07:25 Short CBC 02/13/25 Range/Units 07:25 WBC 7.16 (3.29-11.43) 10^3/uL Hgb 14.90 (11.27-16.99) g/dL Hct 47.1 (37-53) % MCV 90.8 (82-101) fl Plt Count 280 (157-399) 10^3/cmm Neut % (Auto) 48.8 % Neut # (Auto) 3.49 (1.8-7.7) 10^3/uL BMP 02/13/25 07:25 Sodium 139 Potassium 3.9 Chloride 104 Carbon Dioxide 25 BUN 15 Creatinine 1.7 H Glucose 84 Calcium 9.2 Blood Bank 02/13/25 07:25 Blood Type O Positive Rho(D) Type Rh positive Antibody Screen Negative Anesthesia Procedures Nerve Block Nerve Block 1: Main Anesthesia: spinal anesthesia block Time Out Performed: Yes Consent: requested by attending/covering physician, from patient, from other, risks and benefits reviewed and patient agrees to proceed Nerve block location: adductor canal (L) Anesthesia monitors applied: pulse oximetry, EKG, BP cuff and oxygen Anesthetic Used: ropivicaine 0.5% (30 ml) and with decadron (4 mg) Ultrasound used to: recognize landmarks and visualize and ID femerol nerve Interscalene/Femoral BLK: 4 stimuplex 21 g needle used for position and inplane approach, visualize local anesthetic spread and no vascular puncture identified Injection: neg aspiration of heme Patient Tolerated Procedure: well Complications: none
[2025-02-13] MEDS: tranexamic acid 1,000 mg/10mL SDV 1000 MG (11:26)
[2025-02-13] MEDS: ROPivacaine 0.2% Premix 100 mL 200 MG INTRA-ARTI (11:28)
[2025-02-13] MEDS: tranexamic acid 1,000 mg/10mL SDV 1000 MG XX (11:33)
--- NOTE | 2025-02-13 12:37 | P.BOP_ITS ---
Date of Procedure: 02/13/2025 Surgeon: Gorge Rowell DO Sewing Machine Operator Semiautomatic(s): Rayo Rowell PA-C Procedure(s) performed: Left total knee arthroplasty?Valentin robotic assisted Findings of the procedure(s): Procedure went as planned without issues or complications Estimated blood loss: 25 mL Specimen(s) removed: Tibia femur patellar bone cuts removed Post-operative diagnosis: Left knee DJD
--- NOTE | 2025-02-13 12:38 | P.OP_ITS ---
Operative Report Date of procedure: February 13, 2025 Surgeon: Gorge Rowell DO Tax Examiner: Rayo Rowell PA-C: PA was necessary for assistance in this case with leg positioning retraction and protection of neurovascular structures as well as assistance in implantation wound closure and dressing application. Procedure: Preoperative diagnosis: Left knee degenerative joint disease Post-op diagnosis: Same Procedure done: Left total knee arthroplasty, cemented?robotic assisted Valentin Implants: Leah triathlon size 6 femur CR cemented?left Leah triathlon size? 5 tibia universal baseplate cemented [place] triathlon symmetric patella size 33 mm Leah triathlon polyethylene 9mm Surgeon: Gorge Rowell DO Estimated blood?loss: 25 mL Tourniquet 64min IV fluids: 1000 mL Urine output: 200 mL Complications: None Condition: stable Disposition: floor Brief History: Patient is a 65-year-old male with with chronic?left knee degenerative joint disease.? Patient has been worked up in the outpatient setting in the orthopedic office at this point time through shared decision making given? [id number] arthritis as well as failed conservative treatment, and pt would?like to proceed with a?left total knee arthroplasty.? Through shared decision making elected to proceed with surgical intervention for?left total knee arthroplasty with Valentin robotic assist.? We talked about continued conservative treatment and surgical intervention as far as the risk benefits complications alternatives surgical and nonsurgical treatment options.? At this point time understanding patient risks with surgery he agrees to proceed with surgical intervention.? Once again? risk with surgery include but are not?limited to make it better make it worse blood clot, heart attack, stroke, on the table, infection, injury to nerves or vessels, persistent pain, arthrofibrosis, implant failure.? Understanding these risks patient agrees to proceed with surgical intervention consent was obtained in the preoperative holding area for Valentin robotic assist.? All questions answered. Procedure: Patient was seen and evaluated in the preoperative holding area.? Consent was r eviewed and signed with patient with plan for?left total knee arthroplasty.? All questions answered.? Correct extremity marked.? Patient seen and evaluated by the anesthesia department and once cleared for surgery was taken back to the operative suite.? Patient was placed into a supine position on the OR table.? All bony prominences were well-padded.? Patient was appropriately secured to the bed.? Patient underwent anesthesia per the anesthesia department.? Patient received anesthesia and? Villagran catheter was placed.? A nonsterile tourniquet was applied to the?left thigh.? At this point in time a final timeout performed.? Patient received appropriate preoperative antibiotics and TXA. Next the?left?lower extremity was then prepped and draped in standard orthopedic fashion. Esmarch tourniquet was used exsanguinate the?left?lower extremity.? Tourniquet was insufflated to 250 mmHg. A standard anterior incision was made over midline of the knee.? Sharp scalpel excision through skin and subcutaneous tissue full-thickness skin flaps were made.? Fascia was elevated off of the extensor retinaculum was stable with medial parapatellar arthrotomy was then made.? The performed standard sequential releases..? Immediately on entry into the joint patient was found to have severe eburnated bone and tricompartmental arthritic changes noted.? With significant osteophyte formation.? Next the the patella was then stuffed and the knee was then flexed.?? Anamaria was placed superiorly around the anterior aspect of the femur this was freed of synovium and I subsequently then placed by 2 femur pins to establish my femur arrays for the Valentin robot.? These were then placed bicortically and? femur array was then appropriately secured with appropriate visualization.? Next attention was turned towards the tibial rays.? These were then drilled sequentially bicortically in parallel fashion and intraincisional.? I then placed my guide as well as my tibial array on in place.? This was appropriately secured and had excellent visualization with the Valentin robot.? Next the tibial checkpoint as well as femur checkpoint were then placed.? At this point time I then subsequently established my head center as well as my medial?lateral malleoli as well as my checkpoints.? Next utilizing standard Valentin technology I then mapped out the appropriate points and confirmation points around the femur as well as the tibia in standard fashion.? Once this was then done I then removed all osteophytes in preparation for dynamic testing.? All osteophytes were removed as well as I removed the ACL and the PCL was excised due to its significant tearing and degeneration noted.? At this point time the knee was brought into full extension and we performed our standard evaluation of our gap balancing stressing his?ligaments and extension as well as flexion appropriate adjustments were made to have appropriate gap balancing in both flexion and extension.? This plan for final cuts which were reviewed and adjus dafne according to patient's deformity to correct the deformity of the patient's ligamentous tolerances..? We get a preoperative plan evaluating our implants which was a size 6 femur and a size 5 tibia.? Next we brought in the Valentin robot and sequentially made our femur cuts.? All excess bony cuts were then removed.? Finally we made our tibial cut.? Once this was done a standard PCL retractor was then placed into this position I excised the medial and?lateral meniscus.? The tibial cut was then subsequently removed all excess bony debris was removed.? I then utilized a?lamina real estate transaction manager and remove the posterior osteophytes.? At this point time sized the tibia and confirmed this was a size 5.? I utilized our blunt probe to establish rotation of tibial implant.? Once this was done I then placed my tibia size 5 trial in appropriate position and then subsequently placed tibial pins to hold this into place placed and trialed up to a size 9 mm poly as well as a size 6 femur which was appropriately impacted in place knee was then subsequently brought into extension. Trials were then assessed,? this was stable with varus valgus stress in extension as well as had symmetrical translation when brought into flexion demonstrating symmetrical gaps. I had excellent balance gaps in flexion and extension with varus and valgus stresses.? At this point I was satisfied with these implants these were then verified and opened on the back table size 5 tibia, size 6 femur,? size 9 mm polythickness.? We did confirm appropriate gap balancing and stresses as well as alignment utilizing? Valentin and were satisfied with this plan.? ?At this point time with my trials in place I then towel clip the patella everted this made appropriate measurements subsequently utilizing freehand technique performed by patellar resurfacing this was confirmed to be appropriate resection and subsequently sized to be a 33 mm symmetric.? My drill peg guides were then clamped and appropriate position and appropriate position in the patella for appropriate tracking and parallel with the joint.? Pegs were drilled trial implant was placed and the knee was then subsequently ranged and found to have excellent patellar tracking.? Femur pegs were then drilled.? At this point time all of our trial implants were removed.? All checkpoints as well as guidepins and arrays were removed and appropriate counts made. Satisfied with our tibial placement rotation I then utilized the keel punch and prepped the tibia.?? The wound bed? was thoroughly irrigated and dried and prepped for cementation.? Cement was mixed on the back table.? Once cement was ready this was then covered onto the tibia and the tibial baseplate was then impacted and all excess cement was removed.? Next the polyethylene was then impacted into place on the tibial baseplate.? Next cement was placed onto the femur as well as under the femur implants and impacted in to place and all excess cement was extruded and removed.? Knee was taken into full extension? to clear all excess cement was removed.? Warm saline was placed over the joint.? I then towel clip patella and dried for cementation. cemented the patella into place.? This was all clamped and the cement was allowed to cure.? Thorough irrigation performed with pulse?lavage.? I then placed my periarticular injection while the cement was curing.? Once cured the knee was taken through range of motion and had excellent stability and gaps were balanced in flexion and extension.? Tourniquet was then deflated. hemostasis satisfactory with electrocautery.? Next I then subsequently closed the capsule with Ethibond suture as well as a running strata fix suture.? Knee was then taken through range of motion 30 times.? Next the skin was then closed in?layered fashion of running stratifix sutures of deep and subcutenous tissue and skin.? ?closed in flexion and skin was closed with mallory.? Incision was covered with Silverlon, with ABDs soft roll and Deshawn wrap.? Patient was then awakened from anesthesia and taken to PACU in stable condition. Disposition: Patient taken to PACU in stable condition will be admitted to the floor for pain control PT/OT weight-bear as tolerated?left?lower extremity dressing changes as needed, DVT prophylaxis. Pain control. Patient will receive appropriate postoperative antibiotics. patient will be seen today by the internal medicine team for medical management.? Patient will follow up with the office in 2 weeks.? Patient understands agrees with current plan.? All questions answered.
--- NOTE | 2025-02-13 12:52 | PM.PACU ---
PACU note Narrative: Patient is a 65-year-old male that just underwent a left total knee arthroplasty. Pt transferred to PACU in stable condition. Dressing is dry. pt is awake and alert. pt can wiggle toes and plantarflex and dorsiflex foot. pt able to perform straight leg raise, Femoral nerve intact. Distal pulses are palpable toes are warm and well-perfused. Cap refill is normal and under 2 seconds. Sensation to foot is intact. Pain is controlled. Exam: awake Disposition: admitted
[2025-02-13] MEDS: fentaNYL 50 mcg/mL INJ 2mL IVP ×2 (13:03→13:25)
--- NOTE | 2025-02-13 13:11 | PM.CONSULT ---
Providers/Reason For Consult Consulting Physician/Specialty*: Orthopedic service Reason for Consult*: Left knee TKA Attending Physician: Gorge Rowell DO Primary Care Provider: Zoey Rivera MD History of Present Illness History of Present Illness Varun Quinn is a 65 year old male with a past medical history of of BPH, hypertension, CKD, who presents [facility] for left knee total arthroplasty, patient is seen in postop recovery, currently alert oriented x 3, following all commands on room air, denies any fevers, no chills, no cough no chest pain no cardiovascular history, no history of strokes, no history of diabetes, he is 6 foot tall he is a bit uncomfortable in the bed that he is in, Review of Systems Card: Denies: chest pain Resp: Denies: dyspnea GI: Denies: abdominal pain Medications/Allergies Home Medications ?Medication ?Instructions ?Recorded ?Confirmed ?Last Taken ?Type atorvastatin 80 mg tablet 80 mg PO DAILY 08/28/21 02/09/25 02/12/25 History fluoxetine 20 mg capsule 20 mg PO DAILY 08/28/21 02/09/25 02/12/25 History multivitamin 1 tab PO DAILY 08/28/21 02/09/25 06/04/22 History sildenafil 100 mg tablet 100 mg PO DAILY PRN Erectile 08/28/21 02/09/25 1 Day Ago History Dysfunction ~02/08/25 amlodipine 5 mg tablet 5 mg PO DAILY 04/30/22 02/09/25 02/12/25 History niacin 1,000 mg tablet,extended 1,000 mg PO DAILY 04/30/22 02/09/25 02/12/25 History release 24 hr testosterone 3 pump topical DAILY 3 months #150 05/31/24 02/09/25 Unknown Rx grams Allergies Allergy/AdvReac Type Severity Reaction Status Date / Time Penicillins Allergy ADR-Seizure Verified 02/13/25 07:03 Current Medications Generic Name Dose Route Start Last Admin Trade Name Alex PRN Reason Stop Dose Admin Fentanyl 50 mcg 02/13/25 11:58 02/13/25 13:03 Fentanyl 50 Mcg/Ml Inj 2ml IVP 02/14/25 11:58 50 mcg Q5M PRN Administration Pain level 6-10 PACU Phase I Sodium Chloride 1,000 mls @ 30 mls/hr 02/13/25 09:00 02/13/25 09:03 Sodium Chloride 0.9% IV 02/14/25 08:59 30 mls/hr .Q24H ARLENE Administration Midazolam HCl 2 mg 02/13/25 08:46 02/13/25 08:55 Midazolam 1 Mg/Ml Inj 2 Ml IVP 2 mg Q5M PRN Administration Preop Anxiety PFSH Acute PFSH: Medical History BPH loc w urin obs/LUTS Surgical History Status post transurethral resection of prostate History of rotator cuff surgery History of hernia surgery History of cervical spinal surgery Family History Father , AT AGE 74 Cancer COLON Mother , AT AGE 58 Stroke Social History Smoking and tobacco/nicotine status: never used tobacco/nicotine Alcohol intake: never Substance/Drug Use: never Marital status: Current occupational status: retired and disabled Vitals/I&O/Wt Last Vital Signs Temp 97.0 F L 02/13/25 12:42 Pulse 58 L 02/13/25 13:07 Resp 18 02/13/25 13:07 BP 131/75 02/13/25 13:07 Pulse Ox 96 02/13/25 13:07 O2 Del Method Room Air 02/13/25 13:07 O2 Flow Rate 8 02/13/25 12:52 02/12/25 02/13/25 02/13/25 22:59 06:59 14:59 Intake Total 450 / 450 Balance 450 / 450 Weight last 48 hrs Weight 97.976 kg Physical Exam Const: COMMON NORMALS: no acute distress and patient oriented x3 HENMT: COMMON NORMALS: normocephalic HEAD & SCALP: normocephalic Resp: COMMON NORMALS: normal respiratory effort, No retractions, No use of accessory muscles and clear to auscultation bilaterally AUSCULTATION: clear to auscultation bilaterally Cardio: COMMON NORMALS: regular rate, regular rhythm, S1 normal heart sound present and S2 normal heart sound present RATE: regular rate RHYTHM: regular rhythm HEART SOUNDS: S1 normal heart sound present and S2 normal heart sound present GI: COMMON NORMALS: Normal to inspection, nondistended, normoactive bowel sounds present and non-tender Extremity: COMMON NORMALS: no calf tenderness and no pedal edema NARRATIVE EXTREMITY EXAM: Left leg is wrapped, Neuro: COMMON NORMALS: patient oriented x3, CN's II-XII intact bilaterally and moves all extremities Psych: COMMON NORMALS: mental status grossly normal Data 02/13/25 07:25 02/13/25 07:25 A&P Assessment and plan (1) Left knee DJD: Left knee total arthroplasty - Pain control and anticoagulation as per orthopedic team - Will be on Eliquis for DVT prophylaxis Hypertension resume Norvasc Hyperlipidemia resume atorvastatin Resume fluoxetine CKD creatinine 1.7 monitor PDMP PDMP Reviewed: Not Reviewed Consult Attestations Medical Necessity Statement: Patient requires hospitalization for left knee total arthroplasty Diagnoses Left knee DJD M17.12
--- NOTE | 2025-02-13 13:49 | PC.NURSE ---
1345 - Patient transported to room 262 via bed. VS taken T. 97.6, HR 75, BP 154/93, 02 sat 93% on room air. Bed alarm set, CLWR. MICHAEL Mathew and AUTOMATIC WINDER OPERATOR at bedside.
--- NOTE | 2025-02-13 13:52 | ANE.PACU2 ---
Inpatient post-anesthesia follow up: Airway intact: Yes Vital signs: Temperature 97.0 F Pulse Rate 71 Respiratory Rate 18 Blood Pressure 144/87 Pulse Oximetry 94 Oxygen Delivery Me thod Nasal Cannula Oxygen Flow Rate 2 Fraction of Inspir ed Oxygen Hydration adequate: Yes Nausea and vomiting: No Pain level: 1 Mental status: Baseline
[2025-02-13] MEDS: oxyCODONE 5 mg IR Tab/Cap PO ×3 (14:05→23:37)
[2025-02-13] MEDS: multivitamin therapeutic Tablet 1 TAB PO (14:05)
[2025-02-13] MEDS: sennosides-docusate Tablet 2 TAB PO (14:05)
[2025-02-13] MEDS: calcium carb-vit d 600mg/400unit 1 Tablet 1 EACH PO (14:05)
[2025-02-13] MEDS: mupirocin oint 22 gm 1 APPLIC NASAL (14:08)
[2025-02-13] MEDS: chlorhexidine gluconate 0.12% Btl 473 mL 30 ML MUCOUS MEM ×3 (14:08→21:05)
[2025-02-13] MEDS: HYDROmorphone 0.5 MG/0.5 ML INJ IVP ×2 (14:33→19:53)
[2025-02-13] MEDS: tranexamic acid 1,000 MG/100 ML PREMIX 600 MG IV (14:46)
[2025-02-14] VITALS (8 sets, daily range): BP systolic 141–176; BP diastolic 73–96; PULSE 80–90; RESP 16–18; TEMP 36.5–36.8; O2SAT 94–95
[2025-02-14] MEDS: oxyCODONE 5 mg IR Tab/Cap PO ×3 (03:35→13:36)
[2025-02-14] MEDS: HYDROmorphone 0.5 MG/0.5 ML INJ IVP (05:39)
[2025-02-14] MEDS: acetaminophen 1,000 MG/100 ML PIGGYBACK 400 MG IV (05:40)
[2025-02-14 05:48] LABS: Hematocrit 36.0 % (37-53); Hemoglobin 11.50 g/dL (11.27-16.99); Mean Corpuscular HGB Conc 31.9 g/dL (30-55); Mean Corpuscular Hemoglobin 29.2 pg (27-33); Mean Corpuscular Volume 91.4 fl (82-101); Nucleated Red Blood Cells % 0 %; Platelet Count 223 10^3/cmm (157-399); Red Blood Count 3.94 10^6/uL (3.85-5.65); White Blood Count 24.67 10^3/uL (3.29-11.43)
[2025-02-14 06:03] LABS: Anion Gap 14.4 (5-19); Blood Urea Nitrogen 17 mg/dL (8-23); Calcium 8.5 mg/dL (8.5-10.5); Carbon Dioxide 23 mmol/L (22-29); Chloride 102 mmol/L (98-107); Creatinine Clr Calc Pharmacy 52.4700; Glucose 142 mg/dL (65-115); Osmolality Calculated 284 mOsm/kg (285-295); Potassium 4.4 mmol/L (3.5-5.1); Sodium 135 mmol/L (136-145)
--- NOTE | 2025-02-14 08:28 | XR_ITS ---
WS: [id number] Exam: XR chest 1V portable [id number] Date/Time of Exam: 02/14/2025 8:46 AM Reason For Exam: sob No priors. Lungs are fully expanded and clear. Normal heart size. The mediastinum is normal in contour. Fusion hardware noted in the lower C-spine. No pleural effusion. Bony structures are intact. XR/XR chest 1V portable [id number] IMPRESSION: 1. Negative chest.
[2025-02-14] MEDS: multivitamin therapeutic Tablet 1 TAB PO (08:31)
[2025-02-14] MEDS: calcium carb-vit d 600mg/400unit 1 Tablet 1 EACH PO (08:31)
[2025-02-14] MEDS: chlorhexidine gluconate 0.12% Btl 473 mL 30 ML MUCOUS MEM (08:34)
[2025-02-14] MEDS: mupirocin oint 22 gm 1 APPLIC NASAL (08:35)
[2025-02-14 09:54] LABS: Glucose Urine UA Negative (Normal); Nitrate Urine Negative (Negative); Specific Gravity, Urine 1.024 (1.005-1.030)
[2025-02-14 09:59] LABS: Add Urine Microscopic? YES
--- NOTE | 2025-02-14 10:20 | PC.CHAP ---
Pastoral Care Encounter/Spiritual Assessment Type of Contact [] Declined roadability machine operator visit [] Patient/Family/Request visit [] Outpatient visit [] Follow-up visit [] Physician referral [] Code/Alert [x] Routine visit [] Staff referral [] Actively dying [] Patient sleeping [] Family support [] [] Out of room [] Palliative care [] [] Receiving care in room [] Pre-surgical visit [] Trauma [] Long length of stay [] ICU visit [] Other: Relational/Emotional Strength [x] Patient feels connected with others/family/visitors/staff [] Distress [] Loneliness/isolation [] Abandonment Spirituality of Patient [x] Person of Grace [] Attends Buddhism of their Grace [x] Believes in Prayer [] Reads Bible or Jain materials [] There are Spiritual issues to be addressed Breeding Manager Interventions [x] Prayer [x] Active listening [] Non-anxious presence [x] Spiritual/emotional support [] Crisis/trauma care [] Spiritual counseling [] Bereavement support [] Provided bereavement packet [] Provided Bible/devotional materials [] Provided toy/stuffed animal, coloring book to patient or family member [] Provided Communion [] Anointing/[place] [] Salvation [x] Completed spiritual assessment [] Other: Impact on Illness or Injury [] Angry [] Fearful [] Anxious [] Often cries [] Exhaustion [] Unable to work [] Unable to attend hindu [] Unable to walk/stand [] Unable to read [] Unable to drive [] Unable to eat/drink [] Unable to sleep [] Unable to be with family [] Patient intubated [] Other: Summary Time spent with patient 5 min Pastoral Care Encounter/Spiritual Assessment Type of Contact [] Declined roadability machine operator visit [] Patient/Family/Request visit [] Outpatient visit [] Follow-up visit [] Physician referral [] Code/Alert [] Routine visit [] Staff referral [] Actively dying [] Patient sleeping [] Family support [] [] Out of room [] Palliative care [] [] Receiving care in room [] Pre-surgical visit [] Trauma [] Long length of stay [] ICU visit [] Other: Relational/Emotional Strength [] Patient feels connected with others/family/visitors/staff [] Distress [] Loneliness/isolation [] Abandonment Spirituality of Patient [] Person of Grace [] Attends Buddhism of their Grace [] Believes in Prayer [] Reads Bible or Jain materials [] There are Spiritual issues to be addressed Breeding Manager Interventions [] Prayer [] Active listening [] Non-anxious presence [] Spiritual/emotional support [] Crisis/trauma care [] Spiritual counseling [] Bereavement support [] Provided bereavement packet [] Provided Bible/devotional materials [] Provided toy/stuffed animal, coloring book to patient or family member [] Provided Communion [] Anointing/[place] [] Salvation [] Completed spiritual assessment [] Other: Impact on Illness or Injury [] Angry [] Fearful [] Anxious [] Often cries [] Exhaustion [] Unable to work [] Unable to attend hindu [] Unable to walk/stand [] Unable to read [] Unable to drive [] Unable to eat/drink [] Unable to sleep [] Unable to be with family [] Patient intubated [] Other: Summary Time spent with patient
--- NOTE | 2025-02-14 10:58 | CTR_ITS ---
PROCEDURE INFORMATION: Exam: CT Abdomen And Pelvis Without Contrast Exam date and time: 02/14/2025 12:31 PM Age: 65 years old Clinical indication: Other: Flank pain; PT had a total knee yesterday. They removed PT catheter and some blood came out with; Additional info: UTI, R flank pain TECHNIQUE: Imaging protocol: Computed tomography of the abdomen and pelvis without contrast. Radiation optimization: All CT scans at this facility use at least one of these dose optimization techniques: automated exposure control; mA and/or kV adjustment per patient size (includes targeted exams where dose is matched to clinical indication); or iterative reconstruction. COMPARISON: CT abdomen wo/w con [id number] 07/23/2023 10:27 AM RADIATION DOSE METRICS: Total DLP (mGy-cm): 878.3 FINDINGS: Liver: Multiple hypoattenuating lesions throughout the liver most suggestive of cysts and/or hemangiomas. Gallbladder and biliary ducts: No calcified stones. No ductal dilation. Pancreas: Unremarkable. Spleen: Unremarkable. Adrenal glands: No mass. Kidneys and ureters: No hydronephrosis. Bilateral punctate renal calculi, nonobstructing. Stomach and bowel: Postprandial appearance of the stomach. Nondistended bowel loops. No focal inflammatory change Appendix: No evidence of appendicitis. Intraperitoneal space: No free air. No significant fluid collection. Vasculature: No abdominal aortic aneurysm. Atherosclerosis Lymph nodes: No pathologically enlarged lymph nodes. Urinary bladder: Decompressed which limits evaluation of the wall. A small amount of air within the bladder related with recent instrumentation. Reproductive: Mild prostatomegaly. Bones/joints: Mild degenerative changes of the spine. No acute fracture. Soft tissues: Unremarkable. CT/CT abdomen pelvis wo con [id number] IMPRESSION: 1. No obstructive uropathy. Punctate bilateral nonobstructing renal calculi. 2. Small amount of air within the urinary bladder can be correlated for recent instrumentation. 3. Multiple hypoattenuating liver lesions most suggestive of cysts and/or hemangiomas. Consider liver MRI for further characterization. 4. Prostatomegaly. Recommend correlation with PSA level.
--- NOTE | 2025-02-14 15:09 | P.PN_ITS ---
Subjective 2 Subjective: Patient was seen this morning, currently alert oriented x 3, following all commands, denies any fevers, no chills, no cough, he does report right flank pain, reports that he had prostate surgery to shrink his prostate about a year ago by Dr. Cerna, denies a history of UTIs Discussed his elevated white blood cell count elevation, his right flank pain, UA concerning for UTI, will plan on doing CT scan abdomen pelvis CT/CT abdomen pelvis wo con [id number] IMPRESSION: 1. No obstructive uropathy. Punctate b ilateral nonobstructing renal calculi. 2. Small amount of air within the urin oniel bladder can be correlated for recent instrumentation. 3. Multiple hypoattenuating liver lesi ons most suggestive of cysts and/or hemangiomas. Consider liver MRI for further characterization. 4. Prostatomegaly. Recommend correlati on with PSA level. - CT scan abdomen pelvis reviewed with farzana bobby - He has not obstructive uropathy with b ilateral punctuate nonobstructing renal colliculi - Denies passing kidney stones - Advised him to hydrate well, - If he does pass feeling he is passing kidney stone to go emergency room - Discussed his prostatomegaly, he needs to follow-up with urology - Discussed my suspicion for UTI, right pyelonephritis, will discharge him on p.o. antibiotics with close follow-up with primary care provider - Will refer him to urology in - He tells me that he is moving to [facility] in April he will need to find a primary care urologist when he goes there - For his prostatomegaly, he is going to need to follow-up with urology, have his PSAs monitored, monitor for UTIs - He voices understanding, all questions answered - Will discharge with Cipro 250 twice da gail for 5 days to cover for UTI - As he needs to be on gram-positive cov erage for his surgery, he was on clindamycin and spoke to Dr. Rowell, will take him off clindamycin and switch him to doxycycline Vitals/I&O/Wt Last Vital Signs Temp 97.7 F 02/14/25 11:22 Pulse 81 02/14/25 11:22 Resp 18 02/14/25 13:36 BP 167/81 02/14/25 11:22 Pulse Ox 95 02/14/25 11:22 O2 Del Method Room Air 02/14/25 11:22 O2 Flow Rate 2 02/13/25 13:37 02/14/25 02/14/25 02/14/25 06:59 14:59 22:59 Intake Total 1098.333 / 2522.833 960 / 960 Output Total 700 / 925 600 / 600 Balance 398.333 / 1597.833 360 / 360 Weight last 48 hrs Weight 104.383 kg Weight 105.233 kg Weight 97.976 kg Physical Exam 2 Const: COMMON NORMALS: no acute distress and patient oriented x3 Resp: COMMON NORMALS: normal respiratory effort, No retractions, No use of accessory muscles and clear to auscultation bilaterally AUSCULTATION: clear to auscultation bilaterally Cardio: COMMON NORMALS: regular rate, regular rhythm, S1 normal heart sound present and S2 normal heart sound present RATE: regular rate RHYTHM: r egular rhythm HEART SOUNDS: S1 normal heart sound present and S2 normal heart sound present GI: COMMON NORMALS: Normal to inspection, nondistended, normoactive bowel sounds present and non-tender Extremity: COMMON NORMALS: no pedal edema Neuro: COMMON NORMALS: patient oriented x3 Psych: COMMON NORMALS: mental status grossly normal Urinary Catheter Management: Villagran: Cath Placed During This Visit: yes, but has since been removed by the nurse Reason for Continuing Indwelling Catheter: Perioperative Use in Selected Surgeries Urinary Catheter Date of Insertion: 02/13/25 Date Urinary Catheter Removed: 02/14/25 Time Urinary Catheter Discontinued: 06:50 Data 02/14/25 05:21 02/14/25 05:21 A&P Assessment and plan 1. 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
--- NOTE | 2025-02-14 15:15 | PM.DCS ---
Discharge Providers Date of Admission: 02/13/25 12:41 Date of Discharge: February 14, 2025 Attending Provider at Admission: Gorge Rowell DO Attending Provider at Discharge: Gorge Rowell DO Consults: Dr. Stephen?hospitalist Primary Care Provider: Zoey Rivera MD Diagnoses at Discharge Discharge Diagnosis 1. Left knee DJD: Reason for Visit Reason for Visit: M17.12 Brief History: Status post left total knee arthroplasty?Valentin robotic assisted Hospital Course Hospital Course Patient presented to the preoperative holding area with plan for left total knee arthroplasty after patient has been worked up in the outpatient setting for failed conservative treatment of left knee degenerative joint disease. Once cleared by anesthesia for surgery patient subsequently was taken back to the operative suite underwent anesthesia per anesthesia department and then subsequently underwent a left total knee arthroplasty. Procedure was performed without any complications patient was taken to PACU in stable condition patient recovered well in PACU and then was admitted to the floor postoperatively internal medicine was consulted and on board for medical management and assistance with care. Patient received appropriate PT/OT, postoperative antibiotics, postoperative TXA, pain control, postoperative DVT prophylaxis. Elevation and ice. Patient encouraged for knee range of motion allowed weightbearing as tolerated to the operative lower extremity. Dressing was changed as needed, labs were monitored daily. Patient recovered well postoperatively and worked well and progressed well with therapy. On postoperative day 1 he did have some flank pain hospitalist was on board worked this up appropriately please refer to their consultation note as well as daily progress note for details. Concern was for possible kidney stone or pyelonephritis given he does have some chronic kidney disease at baseline. This was worked up there is no obstructing uropathy. It is recommended by hospitalist to cover for possible UTI and we will add gram-positive coverage as well just for prophylaxis from surgery appreciate hospitalist recommendations and workup. Patient recovered stable from an orthopedic standpoint on postoperative day 1 and progressed appropriately with therapy. It was determined on postoperative day 1 the patient was stable for discharge from an orthopedic standpoint and medicine. Patient was comfortable with discharge and plan was discharged home. Patient received appropriate discharge instructions as well as pain medication and DVT prophylaxis postoperatively. Given appropriate instructions for dressing management. Patient will follow-up with Dr. Rowell/orthopedics in the office in 2 weeks. All questions answered. Understand if there is any issues questions or concerns and contact the office. Physical Exam Narrative: Left knee examination: Dressing on in place, clean dry and intact. No evidence of saturation. Patient has normal postoperative swelling and tenderness to palpation to the knee. Compartments are soft compressible,'s calf soft and nontender. Sensations intact to light touch distally. Distal pulses are palpable. Patient is able to wiggle toes as well as plantarflex and dorsiflex ankle. Urinary Catheter Management: Villagran: Cath Placed During This Visit: yes, but has since been removed by the nurse Reason for Continuing Indwelling Catheter: Perioperative Use in Selected Surgeries Urinary Catheter Date of Insertion: 02/13/25 Date Urinary Catheter Removed: 02/14/25 Time Urinary Catheter Discontinued: 06:50 Discharge Data Studies Completed and Pending Completed Studies During Hospitalization Category Date Time Status CT abdomen pelvis wo con [id number] Routine Cat Scan 02/14/25 10:58 Completed XR chest 1V portable [id number] Routine Exams 02/14/25 08:28 Completed XR knee LT 1-2V [id number] Routine Exams 02/13/25 07:36 Completed Radiology Impressions Knee X-Ray 02/13/25 07:36 IMPRESSION: 1. Postoperative radiographs status post total left knee arthroplasty with components in expected position. Chest X-Ray 02/14/25 08:28 IMPRESSION: 1. Negative chest. Abdomen/Pelvis CT 02/14/25 10:58 IMPRESSION: 1. No obstructive uropathy. Punctate bilateral nonobstructing renal calculi. 2. Small amount of air within the urinary bladder can be correlated for recent instrumentation. 3. Multiple hypoattenuating liver lesions most suggestive of cysts and/or hemangiomas. Consider liver MRI for further characterization. 4. Prostatomegaly. Recommend correlation with PSA level. Laboratory Results WBC 20.38 10^3/uL (3.29-11.43) H 02/14/25 16:03 RBC 4.37 10^6/uL (3.85-5.65) 02/14/25 16:03 Hgb 12.40 g/dL (11.27-16.99) 02/14/25 16:03 Hct 39.8 % (37-53) 02/14/25 16:03 MCV 91.1 fl (82-101) 02/14/25 16:03 MCH 28.4 pg (27-33) 02/14/25 16:03 MCHC 31.2 g/dL (30-55) 02/14/25 16:03 RDW 12.2 % (12.1-15.1) 02/14/25 16:03 Plt Count 241 10^3/cmm (157-399) 02/14/25 16:03 MPV 9.1 fL (7.4-10.4) 02/14/25 16:03 Neut % (Auto) 78.8 % 02/14/25 16:03 Lymph % (Auto) 10.1 % 02/14/25 16:03 Mills % (Auto) 9.9 % 02/14/25 16:03 Eos % (Auto) 0.0 % 02/14/25 16:03 Baso % (Auto) 0.5 % 02/14/25 16:03 Neut # (Auto) 16.06 10^3/uL (1.8-7.7) H 02/14/25 16:03 Lymph # (Auto) 2.1 10^3/uL (0.8-4.8) 02/14/25 16:03 Mills # (Auto) 2.0 10^3/uL (0.2-0.9) H 02/14/25 16:03 Eos # (Auto) 0.0 10^3/uL (0.0-0.8) 02/14/25 16:03 Baso # (Auto) 0.1 10^3/uL (0.0-0.1) 02/14/25 16:03 Nucleated RBC % (auto) 0 % 02/14/25 16:03 Nucleated RBCs # 0.0 /100WBC 02/14/25 16:03 Sodium 135 mmol/L (136-145) L 02/14/25 16:03 Potassium 4.4 mmol/L (3.5-5.1) 02/14/25 16:03 Chloride 102 mmol/L (98-107) 02/14/25 16:03 Carbon Dioxide 23 mmol/L (22-29) 02/14/25 16:03 Anion Gap 14.4 (5-19) 02/14/25 16:03 BUN 16 mg/dL (8-23) 02/14/25 16:03 Creatinine 1.8 mg/dL (0.7-1.2) H 02/14/25 16:03 GFR Calculation 46.3 mL/min (90-130) L 02/14/25 16:03 Glucose 91 mg/dL (65-115) 02/14/25 16:03 Calculated Osmolality 281 mOsm/kg (285-295) L 02/14/25 16:03 Calcium 8.9 mg/dL (8.5-10.5) 02/14/25 16:03 Urine Color Yellow (Yellow) 02/14/25 09:15 Urine Appearance Cloudy (CLEAR) A 02/14/25 09:15 Urine pH 5.0 (5-7) 02/14/25 09:15 Ur Specific [place] 1.024 (1.005-1.030) 02/14/25 09:15 Urine Protein 1+ (Negative) A 02/14/25 09:15 Urine Glucose (UA) Negative (Normal) 02/14/25 09:15 Urine Ketones Negative (Negative) 02/14/25 09:15 Urine Blood 3+ (Negative) A 02/14/25 09:15 Urine Nitrate Negative (Negative) 02/14/25 09:15 Urine Bilirubin Negative (Negative) 02/14/25 09:15 Urine Urobilinogen 0.2 mg/dL (Negative) 02/14/25 09:15 Ur Leukocyte Esterase 1+ (Negative) A 02/14/25 09:15 Urine RBC >100 /hpf (0-2) H 02/14/25 09:15 Urine WBC 11-20 /hpf (0-5) H 02/14/25 09:15 Ur Squamous Epith Cells 0-5 /hpf (0-5) 02/14/25 09:15 Amorphous Sediment Not Reportable 02/14/25 09:15 Urine Bacteria None seen /hpf (NONE) 02/14/25 09:15 Hyaline Casts 0.40 /lpf 02/14/25 09:15 Blood Type O Positive 02/13/25 07:25 Rho(D) Type Rh positive 02/13/25 07:25 Antibody Screen Negative 02/13/25 07:25 Vitals Last Vital Signs Temp 98 F 02/14/25 15:50 Pulse 81 02/14/25 15:50 Resp 17 02/14/25 15:50 BP 176/96 02/14/25 15:50 Pulse Ox 94 02/14/25 15:50 O2 Del Method Room Air 02/14/25 15:50 O2 Flow Rate 2 02/13/25 13:37 Discharge Plan Discharge Patient Disposition: Home Health Service Condition: Stable Prescriptions: New Eliquis 2.5 mg tablet 2.5 mg PO BID 14 Days Qty: 28 0RF oxycodone 5 mg tablet 5 mg PO Q6H PRN (Reason: pain postop) 7 Days Qty: 28 0RF ciprofloxacin HCl 250 mg tablet 250 mg PO Q12H 5 Days Qty: 10 0RF doxycycline hyclate 100 mg tablet 100 mg PO BID 7 Days Qty: 14 0RF Continued multivitamin Tablet 1 tab PO DAILY atorvastatin 80 mg tablet 80 mg PO DAILY fluoxetine 20 mg capsule 20 mg PO DAILY sildenafil 100 mg tablet 100 mg PO DAILY PRN (Reason: Erectile Dysfunction) Rx Instructions: administer 30 minutes to 4 hours before activity niacin 1,000 mg tablet extended release 24 hr 1,000 mg PO DAILY amlodipine 5 mg tablet 5 mg PO DAILY testosterone 20.25 mg/1.25 gram (1.62 %) gel in metered-dose pump 3 pump topical DAILY 90 Days Qty: 150 0RF Rx Instructions: apply 3 pump amount over max area of EACH upper arm and shoulder [employer] OK for DC: Orthopedics Discharge Order = DC NOW: Discharge Order (Routine); Ordered 02/14/25 Ordered By: Gilbert Stephen Referrals: [facility] [Outside] Gorge Rowell DO [Physician, Orthopedics] - 02/28/25 1:45 pm Shay Stoner MD [Occupational Therapist, Urology] - 7-10 days Referral Note: protatomegaly We have notified your physician's clinic of the need for a follow-up appointment to be scheduled. If you have not heard from them within the next 2 business days, please call them directly. Discharge Diet: Regular Discharge Activity: Limit activity as instructed, Use walker/crutches as instructed and As per PT/OT instructions Patient Instructions: Ciprofloxacin (By mouth), Doxycycline (By mouth), Oxycodone/Acetaminophen (By mouth) (Percocet), Hydromorphone (By mouth) (Dilaudid, Exalgo), Ondansetron (By mouth) (Zofran, Zofran ODT, Zuplenz), Apixaban (By mouth) (Eliquis), Acute Wound Care (DC), Opioid Safety, Post Anesthesia Care, Patient Portal & [facility]ardo Instructions Activity Restrictions/Additional Instructions: Orthopedic discharge instructions: After 72 hours remove Deshawn wrap and soft dressing down to Silverlon bandage dressing over the incision. Keep incisions clean dry and intact, leave Silverlon bandage dressings on in place for 7 days after that may rinse incisions with warm soapy water pat dry and redress with a dry dressing. Patient may weight-bear as tolerate to the operative extremity Utilize walker as needed Encourage knee range of motion Ice and elevate as needed for pain and swelling Take pain medication as prescribed Take antinausea medication as needed Take antibiotic as prescribed for antibiotic infection prophylaxis Additional 2 days supply of Dilaudid p.o. was prescribed for breakthrough pain only would recommend only taking this if absolutely necessary. Once again remember to not take more than pain medication that is prescribed. Remember to supplement with stool softeners early as narcotic pain medication can cause significant constipation. Pain medication can cause constipation. take [id number] stool softeners and or MiraLAX. Take prescribed Eliquis twice daily for the next 14 days for blood clot prevention May supplement for pain with Tylenol [id number] as needed(1000 mg every 8 hours-do not exceed more than 3000mg in 24-hour period) No baths or soaks Follow-up in the orthopedic office in 2 weeks Contact the office for any questions or concerns Discharge Attestations Time Spent in Discharge Care*: greater than 30 min Quality Metrics Clinical Quality Measures [ No reported AMI, CVA or VTE this stay] Coding Level of Care Code Acute Code for Chg Fwd Diagnoses Left knee DJD M17.12 Time Spent (min) 35
[2025-02-14 16:16] LABS: Hematocrit 39.8 % (37-53); Hemoglobin 12.40 g/dL (11.27-16.99); Mean Corpuscular HGB Conc 31.2 g/dL (30-55); Mean Corpuscular Hemoglobin 28.4 pg (27-33); Mean Corpuscular Volume 91.1 fl (82-101); Nucleated Red Blood Cells % 0 %; Platelet Count 241 10^3/cmm (157-399); Red Blood Count 4.37 10^6/uL (3.85-5.65); White Blood Count 20.38 10^3/uL (3.29-11.43)
[2025-02-14 16:40] LABS: Anion Gap 14.4 (5-19); Blood Urea Nitrogen 16 mg/dL (8-23); Calcium 8.9 mg/dL (8.5-10.5); Carbon Dioxide 23 mmol/L (22-29); Chloride 102 mmol/L (98-107); Creatinine Clr Calc Pharmacy 52.4700; Glucose 91 mg/dL (65-115); Osmolality Calculated 281 mOsm/kg (285-295); Potassium 4.4 mmol/L (3.5-5.1); Sodium 135 mmol/L (136-145)
== END 2025-02-14 16:20 | disposition home health service (06) ==
LOC: MEDSURG 12:42
PROVIDERS: Family Medicine; Physician Assistant; Admitting Provider Student in an Organized Health Care Education/Training Program; PCP Family Medicine; Visit Provider Student in an Organized Health Care Education/Training Program
PROC: 8E0Y0CZ Robotic Assisted Procedure of Lower Extremity, Open Approach (ICD-10-PCS; CPT 27447; principal; 2025-02-13 09:30)
DX: M17.12 Unilateral primary osteoarthritis, left knee (principal); I12.9 Hypertensive chronic kidney disease with stage 1 through stage 4 chronic kidney disease, or unspecified chronic kidney disease; N18.9 Chronic kidney disease, unspecified; G47.30 Sleep apnea, unspecified
CPT/HCPCS: 27447; 20985; 36415; 71045; 73560; 74176; 80048; 81001; 85025; 86850; 86900; 87086; 97110; 97116; 97161; 97165; A4216; C1713; C1776; G0378; J0131; J0171; J0744; J1100; J1171; J1885; J2250; J2405; J2704; J2795; J3010; J3370; J3490; J7030; J7120; J9999; L8699

== ENCOUNTER → 2025-02-28 13:31 | Outpatient (BNVA) | payer OTHER, SELFPAY | PROVIDERS: PCP Family Medicine; Visit Provider Physician Assistant | DX: Z98.890 Other specified postprocedural states (principal); Z96.652 Presence of left artificial knee joint | CPT/HCPCS: 73560; 73565; 99024 ==

== ENCOUNTER → 2025-04-11 13:18 | Outpatient (BNVA) | payer OTHER, SELFPAY | PROVIDERS: Visit Provider Physician Assistant | DX: Z98.890 Other specified postprocedural states (principal); Z96.659 Presence of unspecified artificial knee joint | CPT/HCPCS: 73560; 73565; 99024 ==

== ENCOUNTER 2025-04-13 07:24 | Outpatient (RCR) | payer OTHER, SELFPAY | END 2025-05-09 23:59 | disposition home or self-care (01) | LOC: SPT 07:24 | PROVIDERS: Visit Provider Family Medicine | DX: M25.561 Pain in right knee (principal) | CPT/HCPCS: 97110; 97161 ==